=== PATIENT | female | born 1940 | race Caucasian/White ===

== ENCOUNTER → 2016-09-28 | Outpatient (CLI) | payer MEDICARE, BC | END | disposition disaster alternative care site (69) | LOC: GRAD 11:00 | DX: C64.9 Malignant neoplasm of unspecified kidney, except renal pelvis (principal); I70.0 Atherosclerosis of aorta; J98.4 Other disorders of lung; Z98.890 Other specified postprocedural states; Z90.2 Acquired absence of lung [part of] ==